=== PATIENT | female | born 1945 | race Caucasian/White ===

== ENCOUNTER → 2018-02-13 | Outpatient (CLI) | payer MEDICARE | END | disposition home or self-care (01) | LOC: CFH 16:01 | PROVIDERS: ATTEND Nurse Practitioner | DX: M79.605 Pain in left leg (principal); R22.42 Localized swelling, mass and lump, left lower limb ==

== ENCOUNTER → 2019-09-03 | Outpatient (CLI) | payer MEDICARE | END | disposition home or self-care (01) | LOC: CVU 15:43 | PROVIDERS: ATTEND Family Medicine | DX: I08.3 Combined rheumatic disorders of mitral, aortic and tricuspid valves (principal) | CPT/HCPCS: 93306 ==

== ENCOUNTER 2020-01-27 10:45 | Outpatient (CLI) | payer MEDICARE ==
[~2020-01-27 10:45] MED LIST: REGADENOSON 0.4 MG/5 ML SYRINGE ONE
== END 2020-01-27 23:59 | disposition home or self-care (01) ==
LOC: CFH 10:45
PROVIDERS: ATTEND Internal Medicine Cardiovascular Disease
DX: Z13.6 Encounter for screening for cardiovascular disorders (principal); I25.9 Chronic ischemic heart disease, unspecified; I11.0 Hypertensive heart disease with heart failure; I50.32 Chronic diastolic (congestive) heart failure; R06.02 Shortness of breath; E78.1 Pure hyperglyceridemia
CPT/HCPCS: 75571; 78452; 93017; A9502; J2785

== ENCOUNTER 2020-02-25 08:00 | Day surgery (SDC) | payer MEDICARE ==
[~2020-02-25] VITALS: Ht 172.7 cm; Wt 131.8 kg
[2020-02-25] MEDS ORDERED: ASPIRIN 325 MG TABLET EC PO ONE (08:30)
[2020-02-25 08:31] VITALS: BP 191/80
[2020-02-25] MEDS ORDERED: GLIM2TAB7 PO (08:49)
[2020-02-25] MEDS ORDERED: LEVO150T5 PO (08:49)
[2020-02-25] MEDS ORDERED: ASPI-496 PO (08:49)
[2020-02-25] MEDS ORDERED: cranberry PO (08:49)
[2020-02-25] MEDS ORDERED: ASCO500C2 PO (08:49)
[2020-02-25] MEDS ORDERED: MECL-101 PO (08:49)
[2020-02-25] MEDS ORDERED: ATOR40TA PO (08:49)
[2020-02-25] MEDS ORDERED: CARV3.1212 PO (08:49)
[2020-02-25] MEDS ORDERED: PIOG30TA68 PO (08:49)
[2020-02-25] MEDS ORDERED: METF500T17 PO (08:49)
[2020-02-25] MEDS ORDERED: OLME40TA12 PO (08:49)
[2020-02-25 08:52] LABS: BASOPHILS # (AUTO) 0.04 x10^3/uL (0-0.1); BASOPHILS % (AUTO) 1 % (0-1); EOSINOPHILS # (AUTO) 0.04 x10^3/uL (0-0.4); EOSINOPHILS % (AUTO) 1 % (1-7); LYMPHOCYTES # (AUTO) 1.74 x10^3/uL (1-3.4); LYMPHOCYTES % (AUTO) 24 % (22-44); MD NO; MEAN CORPUSCULAR HEMOGLOBIN 32.2 pg (27.0-34.8); MEAN CORPUSCULAR HGB CONC 32.8 g/dL (32.4-35.8); MEAN CORPUSCULAR VOLUME 98.3 fL (80-100); MEAN PLATELET VOLUME 7.9 fL (7.4-10.4); MONOCYTES # (AUTO) 0.49 x10^3/uL (0.2-0.8); MONOCYTES % (AUTO) 7 % (2-9); NEUTROPHILS # (AUTO) 5.02 x10^3/uL (1.8-6.8); NEUTROPHILS % (AUTO) 69 % (42-75); PLATELET COUNT 227 x10^3/uL (130-400); RED BLOOD COUNT 3.71 x10^6/uL (3.82-5.3); RED CELL DISTRIBUTION WIDTH 14.9 % (9.6-15.2)
[2020-02-25] MEDS ORDERED: PLEASE ENTER ALLERGIES MC SCH (09:00)
[2020-02-25] MEDS ORDERED: SODIUM BICARBONATE 8.4% 150 MEQ in DEXTROSE 5% 1,000 ML IV ONE ×2 (09:00→10:00)
[2020-02-25] MEDS ORDERED: PLEASE ENTER HEIGHT AND WEIGHT MC SCH (09:00)
[2020-02-25 09:01] LABS: ANION GAP 7 mmol/L (5-15); CHLORIDE 113 mmol/L (98-107); CREATININE 1.36 mg/dL (0.55-1.02)
[2020-02-25] MEDS ORDERED: ASPIRIN 325 MG TABLET EC ONE (09:22)
[2020-02-25] MEDS ORDERED: MIDAZOLAM 1 MG/ML, 5ML ONE (09:23)
[2020-02-25] MEDS ORDERED: TICAGRELOR 90 MG TABLET ONE (09:23)
[2020-02-25] MEDS ORDERED: VERAPAMIL 2.5 MG/ML, 2ML ONE (09:23)
[2020-02-25] MEDS ORDERED: FENTANYL PF 100 MCG/2ML ONE (09:23)
[2020-02-25] MEDS ORDERED: HEPARIN 1,000 UNITS/ML, 10ML ONE (09:24)
[2020-02-25] MEDS ORDERED: BIVALIRUDIN 250 MG ONE (09:24)
[2020-02-25] MEDS ORDERED: LIDOCAINE-MPF 1%, 5ML ONE (09:24)
== END 2020-02-25 12:30 | disposition home or self-care (01) ==
LOC: CACL 08:00
PROVIDERS: ATTEND Internal Medicine Cardiovascular Disease
DX: R94.39 Abnormal result of other cardiovascular function study (principal); I25.118 Atherosclerotic heart disease of native coronary artery with other forms of angina pectoris; I25.83 Coronary atherosclerosis due to lipid rich plaque; E11.21 Type 2 diabetes mellitus with diabetic nephropathy; E11.22 Type 2 diabetes mellitus with diabetic chronic kidney disease; I12.9 Hypertensive chronic kidney disease with stage 1 through stage 4 chronic kidney disease, or unspecified chronic kidney disease; N18.3 Chronic kidney disease, stage 3 (moderate); E78.2 Mixed hyperlipidemia; E03.9 Hypothyroidism, unspecified; G47.30 Sleep apnea, unspecified; E66.01 Morbid (severe) obesity due to excess calories; Z68.42 Body mass index [BMI] 45.0-49.9, adult; Z79.82 Long term (current) use of aspirin; Z79.84 Long term (current) use of oral hypoglycemic drugs; Z79.890 Hormone replacement therapy; Z79.899 Other long term (current) drug therapy; Z82.49 Family history of ischemic heart disease and other diseases of the circulatory system
CPT/HCPCS: 36415; 80048; 85025; 93458; 99156; 99157; C1769; C1894; J1644; J2250; J3010; J7070; Q9967; J0583

== ENCOUNTER 2020-07-12 09:35 | Emergency (ER) | payer MEDICARE ==
[~2020-07-12] VITALS: Ht 167.6 cm; Wt 141.4 kg
[~2020-07-12 09:35] MED LIST changes: +ASCO500C2 PO; +ASPI-496 PO; +ATOR40TA PO; +CARV3.1212 PO; +GLIM2TAB7 PO; +LEVO150T5 PO; +MECL-101 PO; +METF500T17 PO; +OLME40TA12 PO; +PIOG30TA68 PO; -REGADENOSON 0.4 MG/5 ML SYRINGE ONE; +cranberry PO
[2020-07-12] MEDS ORDERED: SODIUM CHLORIDE FLUSH 10ML SYR IVF ONE (10:00)
[2020-07-12 10:11] LABS: BASOPHILS % (AUTO) 1 % (0-1); EOSINOPHILS % (AUTO) 1 % (1-7); LYMPHOCYTES % (AUTO) 24 % (22-44); MEAN CORPUSCULAR HEMOGLOBIN 33.1 pg (27.0-34.8); MEAN CORPUSCULAR HGB CONC 33.2 g/dL (32.4-35.8); MEAN PLATELET VOLUME 8.3 fL (7.4-10.4); MONOCYTES % (AUTO) 9 % (2-9); NEUTROPHILS % (AUTO) 65 % (42-75); PLATELET COUNT 232 x10^3/uL (130-400); RED BLOOD COUNT 3.48 x10^6/uL (3.82-5.3); RED CELL DISTRIBUTION WIDTH 14.2 % (9.6-15.2)
--- NOTE | 2020-07-12 10:15 | NUR ---
PT AMBULATED TO BR INDEPENDENTLY. UA OBTAINED.
[2020-07-12 10:16] LABS: MD NO
[2020-07-12 10:19] LABS: ALBUMIN 3.6 g/dL (3.4-5.0); ANION GAP 6 mmol/L (5-15); CALCIUM 8.9 mg/dL (8.5-10.1); CHLORIDE 107 mmol/L (98-107)
[2020-07-12 10:25] LABS: ALANINE AMINOTRANSFERASE 23 U/L (12-78); ALKALINE PHOSPHATASE 82 U/L (45-117); BILIRUBIN,TOTAL 0.5 mg/dL (0.2-1.0); CREATININE 1.46 mg/dL (0.55-1.02); TROPONIN I < 0.015 ng/mL (0.000-0.045)
[2020-07-12 11:12] VITALS: BP 189/70
== END 2020-07-12 11:28 | disposition home or self-care (01) ==
LOC: ED 10:12
DX: I87.2 Venous insufficiency (chronic) (peripheral) (principal); R06.00 Dyspnea, unspecified; E11.22 Type 2 diabetes mellitus with diabetic chronic kidney disease; R06.02 Shortness of breath; I13.0 Hypertensive heart and chronic kidney disease with heart failure and stage 1 through stage 4 chronic kidney disease, or unspecified chronic kidney disease; N18.9 Chronic kidney disease, unspecified; R94.31 Abnormal electrocardiogram [ECG] [EKG]; R07.89 Other chest pain; Z79.899 Other long term (current) drug therapy
CPT/HCPCS: 36415; 71045; 80053; 83880; 84484; 85025; 93005; 99283; 99285